=== PATIENT | male | born 1975 | race African-American/Black ===

== ENCOUNTER 2017-07-02 02:36 | Emergency (ER) | payer SELFPAY ==
[~2017-07-02] VITALS: Ht 175.3 cm; Wt 91.0 kg
[2017-07-02 02:39] VITALS: BP 129/76; PULSE 77; RESP 16; TEMP 97.6; O2SAT 94
[2017-07-02 03:37] LABS: AUTOMATED NEUTROPHIL # 1.6 TH/MM3 (1.8-7.7); BASOPHIL # 0.1 TH/MM3 (0-0.2); BASOPHIL % 1.1 % (0.0-2.0); EOSINOPHIL # 0.1 TH/MM3 (0-0.4); EOSINOPHIL % 2.9 % (0.0-4.0); HEMATOCRIT 42.2 % (39.0-51.0); HEMOGLOBIN 14.4 GM/DL (13.0-17.0); LYMPH % 46.5 % (9.0-44.0); LYMPHOCYTE # 2.1 TH/MM3 (1.0-4.8); MEAN CORPUSCULAR HEMOGLOBIN 31.4 PG (27.0-34.0); MEAN CORPUSCULAR HGB CONC 34.1 % (32.0-36.0); MEAN PLATELET VOLUME 8.9 FL (7.0-11.0); MONO % 13.8 % (0.0-8.0); MONOCYTE # 0.6 TH/MM3 (0-0.9); NEUT % 35.7 % (16.0-70.0); PLATELET COUNT 178 TH/MM3 (150-450); RED BLOOD COUNT 4.58 MIL/MM3 (4.50-5.90); RED CELL DISTRIBUTION WIDTH 14.8 % (11.6-17.2); WHITE BLOOD COUNT 4.5 TH/MM3 (4.0-11.0)
[2017-07-02 03:57] LABS: ALBUMIN 3.6 GM/DL (3.4-5.0); ALT (GPT) 30 U/L (12-78); AST (GOT) 24 U/L (15-37); BICARBONATE 29.2 MEQ/L (21.0-32.0); BLOOD UREA NITROGEN 9 MG/DL (7-18); CALCIUM 8.1 MG/DL (8.5-10.1); CHLORIDE 107 MEQ/L (98-107); CREATININE 0.78 MG/DL (0.60-1.30); GLOMERULAR FILTRATION RATE 110 ML/MIN (>89); GLUCOSE,RANDOM 95 MG/DL (74-106); SODIUM (NA) 141 MEQ/L (136-145)
[2017-07-02 03:59] LABS: ALKALINE PHOSPHATASE 163 U/L (45-117); TOTAL BILIRUBIN ADULT 0.2 MG/DL (0.2-1.0); TOTAL PROTEIN 7.4 GM/DL (6.4-8.2)
[2017-07-02 04:02] LABS: ACETAMINOPHEN LESS THAN 2.0 MCG/ML (10.0-30.0)
--- NOTE | 2017-07-02 05:02 | PD ---
HPI Chief Complaint: Psychiatric Symptoms Time Seen by Provider: 03:24 Travel History International Travel<30 days: No Contact w/Intl Traveler<30days: No Traveled to known affect area: No History of Present Illness HPI Patient is a 41-year-old male presented to emergency department voluntarily. Patient states he makes poor choices and is depressed. He reports feeling suicidal. He drinks alcohol on a daily basis. He has no physical complaints this time. Patient is not very forthcoming with information and appears more interested in sleeping. PFSH Past Medical History Depression: Yes Diminished Hearing: No Psychiatric: Yes Immunizations Current: Yes Tetanus Vaccination: < 5 Years Influenza Vaccination: Yes Past Surgical History Other Surgery: Yes (SKIN GRAFT) Social History Alcohol Use: Yes (DAILY) Tobacco Use: Yes (1/2 PPD) Substance Use: Yes Allergies-Medications (Allergen,Severity, Reaction): Coded Allergies: shellfish derived (Verified Allergy, Unknown, 07/02/17) Reported Meds & Prescriptions Reported Meds & Active Scripts Active No Active Prescriptions or Reported Medications Review of Systems Except as stated in HPI: all other systems reviewed are Neg Psychiatric: Positive: Depression, Suicidal Ideations, Substance Abuse Physical Exam Narrative GENERAL: Well-developed, well-nourished, male. SKIN: Warm and dry. HEAD: Atraumatic. Normocephalic. EYES: Pupils equal and round. No scleral icterus. No injection or drainage. ENT: No nasal bleeding or discharge. Mucous membranes pink and moist. NECK: Trachea midline. No JVD. CARDIOVASCULAR: Regular rate and rhythm. RESPIRATORY: No accessory muscle use. Clear to auscultation. Breath sounds equal bilaterally. GASTROINTESTINAL: Abdomen soft, non-tender, nondistended. Hepatic and splenic margins not palpable. MUSCULOSKELETAL: Extremities without clubbing, cyanosis, or edema. No obvious deformities. NEUROLOGICAL: Awake and alert. No obvious cranial nerve deficits. Motor grossly within normal limits. Five out of 5 muscle strength in the arms and legs. Normal speech. PSYCHIATRIC: Depressed mood and flat affect; insight and judgment normal. Data Data Last Documented VS Vital Signs Date Time Temp Pulse Resp B/P (MAP) Pulse Ox O2 Delivery O2 Flow Rate FiO2 07/02/17 02:39 97.6 77 16 129/76 (93) 94 Orders Orders Complete Blood Count With Diff (07/02/17 03:15) Comprehensive Metabolic Panel (07/02/17 03:15) Psych Screen (07/02/17 03:15) Drug Screen, Random Urine (07/02/17 03:15) Alcohol (Ethanol) (07/02/17 03:15) Salicylates (Aspirin) (07/02/17 03:15) Tylenol (Acetaminophen) (07/02/17 03:15) Labs Laboratory Tests Test 07/02/17 03:27 White Blood Count 4.5 TH/MM3 Red Blood Count 4.58 MIL/MM3 Hemoglobin 14.4 GM/DL Hematocrit 42.2 % Mean Corpuscular Volume 92.0 FL Mean Corpuscular Hemoglobin 31.4 PG Mean Corpuscular Hemoglobin Concent 34.1 % Red Cell Distribution Width 14.8 % Platelet Count 178 TH/MM3 Mean Platelet Volume 8.9 FL Neutrophils (%) (Auto) 35.7 % Lymphocytes (%) (Auto) 46.5 % Monocytes (%) (Auto) 13.8 % Eosinophils (%) (Auto) 2.9 % Basophils (%) (Auto) 1.1 % Neutrophils # (Auto) 1.6 TH/MM3 Lymphocytes # (Auto) 2.1 TH/MM3 Monocytes # (Auto) 0.6 TH/MM3 Eosinophils # (Auto) 0.1 TH/MM3 Basophils # (Auto) 0.1 TH/MM3 CBC Comment DIFF FINAL Differential Comment Blood Urea Nitrogen 9 MG/DL Creatinine 0.78 MG/DL Random Glucose 95 MG/DL Total Protein 7.4 GM/DL Albumin 3.6 GM/DL Calcium Level 8.1 MG/DL Alkaline Phosphatase 163 U/L Aspartate Amino Transf (AST/SGOT) 24 U/L Alanine Aminotransferase (ALT/SGPT) 30 U/L Total Bilirubin 0.2 MG/DL Sodium Level 141 MEQ/L Potassium Level 3.8 MEQ/L Chloride Level 107 MEQ/L Carbon Dioxide Level 29.2 MEQ/L Anion Gap 5 MEQ/L Estimat Glomerular Filtration Rate 110 ML/MIN Salicylates Level 2.3 MG/DL Acetaminophen Level LESS THAN 2.0 MCG/ML Ethyl Alcohol Level 207 MG/DL MDM Medical Decision Making Medical Screen Exam Complete: Yes Emergency Medical Condition: Yes Interpretation(s) Laboratory Tests Test 07/02/17 03:27 White Blood Count 4.5 TH/MM3 Red Blood Count 4.58 MIL/MM3 Hemoglobin 14.4 GM/DL Hematocrit 42.2 % Mean Corpuscular Volume 92.0 FL Mean Corpuscular Hemoglobin 31.4 PG Mean Corpuscular Hemoglobin Concent 34.1 % Red Cell Distribution Width 14.8 % Platelet Count 178 TH/MM3 Mean Platelet Volume 8.9 FL Neutrophils (%) (Auto) 35.7 % Lymphocytes (%) (Auto) 46.5 % Monocytes (%) (Auto) 13.8 % Eosinophils (%) (Auto) 2.9 % Basophils (%) (Auto) 1.1 % Neutrophils # (Auto) 1.6 TH/MM3 Lymphocytes # (Auto) 2.1 TH/MM3 Monocytes # (Auto) 0.6 TH/MM3 Eosinophils # (Auto) 0.1 TH/MM3 Basophils # (Auto) 0.1 TH/MM3 CBC Comment DIFF FINAL Differential Comment Blood Urea Nitrogen 9 MG/DL Creatinine 0.78 MG/DL Random Glucose 95 MG/DL Total Protein 7.4 GM/DL Albumin 3.6 GM/DL Calcium Level 8.1 MG/DL Alkaline Phosphatase 163 U/L Aspartate Amino Transf (AST/SGOT) 24 U/L Alanine Aminotransferase (ALT/SGPT) 30 U/L Total Bilirubin 0.2 MG/DL Sodium Level 141 MEQ/L Potassium Level 3.8 MEQ/L Chloride Level 107 MEQ/L Carbon Dioxide Level 29.2 MEQ/L Anion Gap 5 MEQ/L Estimat Glomerular Filtration Rate 110 ML/MIN Salicylates Level 2.3 MG/DL Acetaminophen Level LESS THAN 2.0 MCG/ML Ethyl Alcohol Level 207 MG/DL Vital Signs Date Time Temp Pulse Resp B/P (MAP) Pulse Ox O2 Delivery O2 Flow Rate FiO2 07/02/17 02:39 97.6 77 16 129/76 (93) 94 Differential Diagnosis Mood disorder versus substance abuse versus malingering versus metabolic abnormality versus other Narrative Course Patient presented voluntarily for psychiatric evaluation secondary depression and suicidal ideations. He reports chronic alcohol use. Patient's vital signs are stable. Labs reviewed, abnormality is identified. Alcohol level is 207. Patient is medically cleared for psychiatric evaluation at this time. Diagnosis Primary Impression: Medical clearance for psychiatric admission Scripts No Active Prescriptions or Reported Meds Condition: Stable SimonHelenAngelaevelia MATTA Jul 02, 2017 05:02
[2017-07-02 09:29] VITALS: BP 122/74; PULSE 76; RESP 16; O2SAT 99
[2017-07-02 14:41] VITALS: BP 120/83; PULSE 74; RESP 18; O2SAT 98
--- NOTE | 2017-07-02 15:07 | PD ---
History of Present Illness Chief Complaint: Psychiatric Symptoms Time Seen by Provider: 14:45 Travel History International Travel<30 Days: No Contact w/Intl Traveler<30days: No Known affected area: No Legal Status Legal Status: Voluntary History of Present Illness: History of Present Illness HPI Patient is a 41-year-old male with no psychiatric history who presented to emergency department voluntarily requesting a psychiatric evaluation.he reported feeling suicidal. He drinks alcohol on a daily basis. His BAL on arrival is 207. He was allowed to sober up in ED. Patient seen. EMR reviewed. No previous contact with [facility] . Patient is alert, oriented, engaging and cooperative male. Speech is clear, logical. He states " I was out with my roxann and he left with my phone. We are staying about 2 hours from here and I was getting cold . I had a few drinks and was just out on the street and didn't know what to do. I am not going to hurt myself and never planned to do so". He denies any previous psychiatric history. Denies any previous suicide attempts. He is requesting to be discharged in order to go to the library to message his friend via [employer]. PFSH Past Medical History Medical History: Denies Significant Hx Depression: Yes Diminished Hearing: No Psychiatric: Yes Immunizations Current: Yes Tetanus Vaccination: < 5 Years Influenza Vaccination: Yes Past Surgical History Other Surgery: Yes (SKIN GRAFT) Psychiatric History Psychiatric History Hx Psychiatric Treatment: Deneis any Deneis hx of suicida attempts. History of Inpatient Treatment: No Guns or firearms in home: No Social History Single male who is from [facility]. 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 Hx Alcohol Use: Yes (DAILY) Hx Tobacco Use: Yes (1/2 PPD) Hx Substance Use: Yes Substance Use Type: Alcohol Hx of Substance Use Treatment: No Family Psychiatric History Denies any Allergies-Medications (Allergen,Severity, Reaction): Coded Allergies: shellfish derived (Verified Allergy, Unknown, 07/02/17) Reported Meds & Prescriptions Reported Meds & Active Scripts Active No Active Prescriptions or Reported Medications Review of Systems Except as stated in HPI: all other systems reviewed are Neg Mental Status Examination Appearance: Appropriate Consciousness: Alert Orientation: x4 Motor Activity: Normal gait Speech: Unremarkable Language: Adequate Fund of Knowledge: Adequate Attention and Concentration: Adequate Memory: Unremarkable Mood: Appropriate Affect: Appropriate Thought Process & Associations: Intact Thought Content: Appropriate Hallucination Type: None Delusion Type: None Suicidal Ideation: No Suicidal Plan: No Suicidal Intention: No Homicidal Ideation: No Homicidal Plan: No Homicidal Intention: No Insight: Adequate Judgment: Adequate MDM Medical Decision Making Medical Record Reviewed: Yes Assessment/Plan Patient is a 41-year-old male with no psychiatric history who presented to emergency department voluntarily requesting a psychiatric evaluation. He reported feeling suicidal. He drinks alcohol on a daily basis. His BAL on arrival is 207. He was allowed to sober up in ED. Once clinically sober he denies any suicidal or homicidal ideation, intent or plan, denies any hx of psychiatric illness and demonstrates no objective clinical symptom of depression. He denies that he was feeling suicidal and attributes his statements as " I had too much to drink". He is requesting discharge as he wants to be able to contact his friend who he came to [facility] with. At this time he does not meet criteria for inpatient psychiatric hospitalization. I suspect that his symptoms were in part malingered in order to obtain longterm for the night. Psychiatrically clear for discharge from ed. Orders Orders Complete Blood Count With Diff (07/02/17 03:15) Comprehensive Metabolic Panel (07/02/17 03:15) Psych Screen (07/02/17 03:15) Drug Screen, Random Urine (07/02/17 03:15) Alcohol (Ethanol) (07/02/17 03:15) Salicylates (Aspirin) (07/02/17 03:15) Tylenol (Acetaminophen) (07/02/17 03:15) Diet Regular Basic (07/02/17 Breakfast) Results Vital Signs Date Time Temp Pulse Resp B/P (MAP) Pulse Ox O2 Delivery O2 Flow Rate FiO2 07/02/17 14:41 74 18 120/83 (95) 98 Room Air 07/02/17 11:58 07/02/17 09:29 76 16 122/74 (90) 99 07/02/17 02:39 97.6 77 16 129/76 (93) 94 Laboratory Tests Test 07/02/17 03:27 White Blood Count 4.5 Red Blood Count 4.58 Hemoglobin 14.4 Hematocrit 42.2 Mean Corpuscular Volume 92.0 Mean Corpuscular Hemoglobin 31.4 Mean Corpuscular Hemoglobin Concent 34.1 Red Cell Distribution Width 14.8 Platelet Count 178 Mean Platelet Volume 8.9 Neutrophils (%) (Auto) 35.7 Lymphocytes (%) (Auto) 46.5 Monocytes (%) (Auto) 13.8 Eosinophils (%) (Auto) 2.9 Basophils (%) (Auto) 1.1 Neutrophils # (Auto) 1.6 Lymphocytes # (Auto) 2.1 Monocytes # (Auto) 0.6 Eosinophils # (Auto) 0.1 Basophils # (Auto) 0.1 CBC Comment DIFF FINAL Differential Comment Blood Urea Nitrogen 9 Creatinine 0.78 Random Glucose 95 Total Protein 7.4 Albumin 3.6 Calcium Level 8.1 Alkaline Phosphatase 163 Aspartate Amino Transf (AST/SGOT) 24 Alanine Aminotransferase (ALT/SGPT) 30 Total Bilirubin 0.2 Sodium Level 141 Potassium Level 3.8 Chloride Level 107 Carbon Dioxide Level 29.2 Anion Gap 5 Estimat Glomerular Filtration Rate 110 Salicylates Level 2.3 Acetaminophen Level LESS THAN 2.0 Ethyl Alcohol Level 207 Diagnosis Primary Impression: Alcohol intoxication Psychiatrically Cleared: Yes Departure Forms: Tests/Procedures Patient Instructions: General Instructions, Medical Clearance for Psychiatric Care (ED) Med/ Other Pt Specific Info: No Meds Exist/No RX given Prescriptions No Active Prescriptions or Reported Meds Disposition: 01 DISCHARGE HOME Condition: Stable FrankYeseniadarrel Flores [facility] Jul 02, 2017 15:07
--- NOTE | 2017-07-02 15:07 | PD ---
History of Present Illness Chief Complaint: Psychiatric Symptoms Time Seen by Provider: 14:45 Travel History International Travel<30 Days: No Contact w/Intl Traveler<30days: No Known affected area: No Legal Status Legal Status: Voluntary History of Present Illness: History of Present Illness HPI Patient is a 41-year-old male with no psychiatric history who presented to emergency department voluntarily requesting a psychiatric evaluation.he reported feeling suicidal. He drinks alcohol on a daily basis. His BAL on arrival is 207. He was allowed to sober up in ED. Patient seen. EMR reviewed. No previous contact with [facility] . Patient is alert, oriented, engaging and cooperative male. Speech is clear, logical. He states " I was out with my roxann and he left with my phone. We are staying about 2 hours from here and I was getting cold . I had a few drinks and was just out on the street and didn't know what to do. I am not going to hurt myself and never planned to do so". He denies any previous psychiatric history. Denies any previous suicide attempts. He is requesting to be discharged in order to go to the library to message his friend via [employer]. PFSH Past Medical History Medical History: Denies Significant Hx Depression: Yes Diminished Hearing: No Psychiatric: Yes Immunizations Current: Yes Tetanus Vaccination: < 5 Years Influenza Vaccination: Yes Past Surgical History Other Surgery: Yes (SKIN GRAFT) Psychiatric History Psychiatric History Hx Psychiatric Treatment: Deneis any Deneis hx of suicida attempts. History of Inpatient Treatment: No Guns or firearms in home: No Social History Single male who is from [facility]. 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 Hx Alcohol Use: Yes (DAILY) Hx Tobacco Use: Yes (1/2 PPD) Hx Substance Use: Yes Substance Use Type: Alcohol Hx of Substance Use Treatment: No Family Psychiatric History Denies any Allergies-Medications (Allergen,Severity, Reaction): Coded Allergies: shellfish derived (Verified Allergy, Unknown, 07/02/17) Reported Meds & Prescriptions Reported Meds & Active Scripts Active No Active Prescriptions or Reported Medications Review of Systems Except as stated in HPI: all other systems reviewed are Neg Mental Status Examination Appearance: Appropriate Consciousness: Alert Orientation: x4 Motor Activity: Normal gait Speech: Unremarkable Language: Adequate Fund of Knowledge: Adequate Attention and Concentration: Adequate Memory: Unremarkable Mood: Appropriate Affect: Appropriate Thought Process & Associations: Intact Thought Content: Appropriate Hallucination Type: None Delusion Type: None Suicidal Ideation: No Suicidal Plan: No Suicidal Intention: No Homicidal Ideation: No Homicidal Plan: No Homicidal Intention: No Insight: Adequate Judgment: Adequate MDM Medical Decision Making Medical Record Reviewed: Yes Assessment/Plan Patient is a 41-year-old male with no psychiatric history who presented to emergency department voluntarily requesting a psychiatric evaluation. He reported feeling suicidal. He drinks alcohol on a daily basis. His BAL on arrival is 207. He was allowed to sober up in ED. Once clinically sober he denies any suicidal or homicidal ideation, intent or plan, denies any hx of psychiatric illness and demonstrates no objective clinical symptom of depression. He denies that he was feeling suicidal and attributes his statements as " I had too much to drink". He is requesting discharge as he wants to be able to contact his friend who he came to [facility] with. At this time he does not meet criteria for inpatient psychiatric hospitalization. I suspect that his symptoms were in part malingered in order to obtain [place] [facility]. Psychiatrically clear for discharge from ed. Orders Orders Complete Blood Count With Diff (07/02/17 03:15) Comprehensive Metabolic Panel (07/02/17 03:15) Psych Screen (07/02/17 03:15) Drug Screen, Random Urine (07/02/17 03:15) Alcohol (Ethanol) (07/02/17 03:15) Salicylates (Aspirin) (07/02/17 03:15) Tylenol (Acetaminophen) (07/02/17 03:15) Diet Regular Basic (07/02/17 Breakfast) Results Vital Signs Date Time Temp Pulse Resp B/P (MAP) Pulse Ox O2 Delivery O2 Flow Rate FiO2 07/02/17 14:41 74 18 120/83 (95) 98 Room Air 07/02/17 11:58 07/02/17 09:29 76 16 122/74 (90) 99 07/02/17 02:39 97.6 77 16 129/76 (93) 94 Laboratory Tests Test 07/02/17 03:27 White Blood Count 4.5 Red Blood Count 4.58 Hemoglobin 14.4 Hematocrit 42.2 Mean Corpuscular Volume 92.0 Mean Corpuscular Hemoglobin 31.4 Mean Corpuscular Hemoglobin Concent 34.1 Red Cell Distribution Width 14.8 Platelet Count 178 Mean Platelet Volume 8.9 Neutrophils (%) (Auto) 35.7 Lymphocytes (%) (Auto) 46.5 Monocytes (%) (Auto) 13.8 Eosinophils (%) (Auto) 2.9 Basophils (%) (Auto) 1.1 Neutrophils # (Auto) 1.6 Lymphocytes # (Auto) 2.1 Monocytes # (Auto) 0.6 Eosinophils # (Auto) 0.1 Basophils # (Auto) 0.1 CBC Comment DIFF FINAL Differential Comment Blood Urea Nitrogen 9 Creatinine 0.78 Random Glucose 95 Total Protein 7.4 Albumin 3.6 Calcium Level 8.1 Alkaline Phosphatase 163 Aspartate Amino Transf (AST/SGOT) 24 Alanine Aminotransferase (ALT/SGPT) 30 Total Bilirubin 0.2 Sodium Level 141 Potassium Level 3.8 Chloride Level 107 Carbon Dioxide Level 29.2 Anion Gap 5 Estimat Glomerular Filtration Rate 110 Salicylates Level 2.3 Acetaminophen Level LESS THAN 2.0 Ethyl Alcohol Level 207 Diagnosis Primary Impression: Alcohol intoxication Psychiatrically Cleared: Yes Departure Forms: Tests/Procedures Patient Instructions: General Instructions, Medical Clearance for Psychiatric Care (ED) Med/ Other Pt Specific Info: No Meds Exist/No RX given Prescriptions No Active Prescriptions or Reported Meds Disposition: 01 DISCHARGE HOME Condition: Stable FrankYeseniadarrel Flores [facility] Jul 02, 2017 15:07
--- NOTE | 2017-07-02 15:07 | PD ---
History of Present Illness Chief Complaint: Psychiatric Symptoms Time Seen by Provider: 14:45 Travel History International Travel<30 Days: No Contact w/Intl Traveler<30days: No Known affected area: No Legal Status Legal Status: Voluntary History of Present Illness: History of Present Illness HPI Patient is a 41-year-old male with no psychiatric history who presented to emergency department voluntarily requesting a psychiatric evaluation.he reported feeling suicidal. He drinks alcohol on a daily basis. His BAL on arrival is 207. He was allowed to sober up in ED. Patient seen. EMR reviewed. No previous contact with [facility] . Patient is alert, oriented, engaging and cooperative male. Speech is clear, logical. He states " I was out with my roxann and he left with my phone. We are staying about 2 hours from here and I was getting cold . I had a few drinks and was just out on the street and didn't know what to do. I am not going to hurt myself and never planned to do so". He denies any previous psychiatric history. Denies any previous suicide attempts. He is requesting to be discharged in order to go to the library to message his friend via [employer]. PFSH Past Medical History Medical History: Denies Significant Hx Depression: Yes Diminished Hearing: No Psychiatric: Yes Immunizations Current: Yes Tetanus Vaccination: < 5 Years Influenza Vaccination: Yes Past Surgical History Other Surgery: Yes (SKIN GRAFT) Psychiatric History Psychiatric History Hx Psychiatric Treatment: Deneis any Deneis hx of suicida attempts. History of Inpatient Treatment: No Guns or firearms in home: No Social History Single male who is from [facility]. 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 Hx Alcohol Use: Yes (DAILY) Hx Tobacco Use: Yes (1/2 PPD) Hx Substance Use: Yes Substance Use Type: Alcohol Hx of Substance Use Treatment: No Family Psychiatric History Denies any Allergies-Medications (Allergen,Severity, Reaction): Coded Allergies: shellfish derived (Verified Allergy, Unknown, 07/02/17) Reported Meds & Prescriptions Reported Meds & Active Scripts Active No Active Prescriptions or Reported Medications Review of Systems Except as stated in HPI: all other systems reviewed are Neg Mental Status Examination Appearance: Appropriate Consciousness: Alert Orientation: x4 Motor Activity: Normal gait Speech: Unremarkable Language: Adequate Fund of Knowledge: Adequate Attention and Concentration: Adequate Memory: Unremarkable Mood: Appropriate Affect: Appropriate Thought Process & Associations: Intact Thought Content: Appropriate Hallucination Type: None Delusion Type: None Suicidal Ideation: No Suicidal Plan: No Suicidal Intention: No Homicidal Ideation: No Homicidal Plan: No Homicidal Intention: No Insight: Adequate Judgment: Adequate MDM Medical Decision Making Medical Record Reviewed: Yes Assessment/Plan Patient is a 41-year-old male with no psychiatric history who presented to emergency department voluntarily requesting a psychiatric evaluation. He reported feeling suicidal. He drinks alcohol on a daily basis. His BAL on arrival is 207. He was allowed to sober up in ED. Once clinically sober he denies any suicidal or homicidal ideation, intent or plan, denies any hx of psychiatric illness and demonstrates no objective clinical symptom of depression. He denies that he was feeling suicidal and attributes his statements as " I had too much to drink". He is requesting discharge as he wants to be able to contact his friend who he came to [facility] with. At this time he does not meet criteria for inpatient psychiatric hospitalization. I suspect that his symptoms were in part malingered in order to obtain senior care for the night. Psychiatrically clear for discharge from ed. Orders Orders Complete Blood Count With Diff (07/02/17 03:15) Comprehensive Metabolic Panel (07/02/17 03:15) Psych Screen (07/02/17 03:15) Drug Screen, Random Urine (07/02/17 03:15) Alcohol (Ethanol) (07/02/17 03:15) Salicylates (Aspirin) (07/02/17 03:15) Tylenol (Acetaminophen) (07/02/17 03:15) Diet Regular Basic (07/02/17 Breakfast) Results Vital Signs Date Time Temp Pulse Resp B/P (MAP) Pulse Ox O2 Delivery O2 Flow Rate FiO2 07/02/17 14:41 74 18 120/83 (95) 98 Room Air 07/02/17 11:58 07/02/17 09:29 76 16 122/74 (90) 99 07/02/17 02:39 97.6 77 16 129/76 (93) 94 Laboratory Tests Test 07/02/17 03:27 White Blood Count 4.5 Red Blood Count 4.58 Hemoglobin 14.4 Hematocrit 42.2 Mean Corpuscular Volume 92.0 Mean Corpuscular Hemoglobin 31.4 Mean Corpuscular Hemoglobin Concent 34.1 Red Cell Distribution Width 14.8 Platelet Count 178 Mean Platelet Volume 8.9 Neutrophils (%) (Auto) 35.7 Lymphocytes (%) (Auto) 46.5 Monocytes (%) (Auto) 13.8 Eosinophils (%) (Auto) 2.9 Basophils (%) (Auto) 1.1 Neutrophils # (Auto) 1.6 Lymphocytes # (Auto) 2.1 Monocytes # (Auto) 0.6 Eosinophils # (Auto) 0.1 Basophils # (Auto) 0.1 CBC Comment DIFF FINAL Differential Comment Blood Urea Nitrogen 9 Creatinine 0.78 Random Glucose 95 Total Protein 7.4 Albumin 3.6 Calcium Level 8.1 Alkaline Phosphatase 163 Aspartate Amino Transf (AST/SGOT) 24 Alanine Aminotransferase (ALT/SGPT) 30 Total Bilirubin 0.2 Sodium Level 141 Potassium Level 3.8 Chloride Level 107 Carbon Dioxide Level 29.2 Anion Gap 5 Estimat Glomerular Filtration Rate 110 Salicylates Level 2.3 Acetaminophen Level LESS THAN 2.0 Ethyl Alcohol Level 207 Diagnosis Primary Impression: Alcohol intoxication Psychiatrically Cleared: Yes Departure Forms: Tests/Procedures Patient Instructions: General Instructions, Medical Clearance for Psychiatric Care (ED) Med/ Other Pt Specific Info: No Meds Exist/No RX given Prescriptions No Active Prescriptions or Reported Meds Disposition: 01 DISCHARGE HOME Condition: Stable FrankYeseniadarrel Flores [facility] Jul 02, 2017 15:07
--- NOTE | 2017-07-02 15:16 | PD ---
Data Data Last Documented VS Vital Signs Date Time Temp Pulse Resp B/P (MAP) Pulse Ox O2 Delivery O2 Flow Rate FiO2 07/02/17 14:41 74 18 120/83 (95) 98 Room Air 07/02/17 02:39 97.6 Orders Orders Complete Blood Count With Diff (07/02/17 03:15) Comprehensive Metabolic Panel (07/02/17 03:15) Psych Screen (07/02/17 03:15) Drug Screen, Random Urine (07/02/17 03:15) Alcohol (Ethanol) (07/02/17 03:15) Salicylates (Aspirin) (07/02/17 03:15) Tylenol (Acetaminophen) (07/02/17 03:15) Diet Regular Basic (07/02/17 Breakfast) Labs Laboratory Tests Test 07/02/17 03:27 White Blood Count 4.5 TH/MM3 Red Blood Count 4.58 MIL/MM3 Hemoglobin 14.4 GM/DL Hematocrit 42.2 % Mean Corpuscular Volume 92.0 FL Mean Corpuscular Hemoglobin 31.4 PG Mean Corpuscular Hemoglobin Concent 34.1 % Red Cell Distribution Width 14.8 % Platelet Count 178 TH/MM3 Mean Platelet Volume 8.9 FL Neutrophils (%) (Auto) 35.7 % Lymphocytes (%) (Auto) 46.5 % Monocytes (%) (Auto) 13.8 % Eosinophils (%) (Auto) 2.9 % Basophils (%) (Auto) 1.1 % Neutrophils # (Auto) 1.6 TH/MM3 Lymphocytes # (Auto) 2.1 TH/MM3 Monocytes # (Auto) 0.6 TH/MM3 Eosinophils # (Auto) 0.1 TH/MM3 Basophils # (Auto) 0.1 TH/MM3 CBC Comment DIFF FINAL Differential Comment Blood Urea Nitrogen 9 MG/DL Creatinine 0.78 MG/DL Random Glucose 95 MG/DL Total Protein 7.4 GM/DL Albumin 3.6 GM/DL Calcium Level 8.1 MG/DL Alkaline Phosphatase 163 U/L Aspartate Amino Transf (AST/SGOT) 24 U/L Alanine Aminotransferase (ALT/SGPT) 30 U/L Total Bilirubin 0.2 MG/DL Sodium Level 141 MEQ/L Potassium Level 3.8 MEQ/L Chloride Level 107 MEQ/L Carbon Dioxide Level 29.2 MEQ/L Anion Gap 5 MEQ/L Estimat Glomerular Filtration Rate 110 ML/MIN Salicylates Level 2.3 MG/DL Acetaminophen Level LESS THAN 2.0 MCG/ML Ethyl Alcohol Level 207 MG/DL [facility] Medical Record Reviewed: Yes Supervised Visit with SARI: Yes Narrative Course Patient is a 30-year-old male who presented to [facility] emergency room voluntarily after he made a comment that he wanted to commit suicide yesterday. Patient reports that he is here for her bike week, patient reports that he was drinking heavily last night and his friend left him. Patient reports that he was depressed and drunk and made a comment that he was suicidal, patient reports that he did not mean it. Patient this time denies suicidal or homicidal ideation. Patient was seen by psychiatric screenerYesenia, patient was deemed safe to be discharged to home safely. Patient at this time contracts for safety, absolutely denies si/hi. Patient safe to be discharged to home. He understands that he may return to the emergency room at any time for evaluation. Diagnosis Primary Impression: Medical clearance for psychiatric admission Additional Impressions: Depression Alcohol intoxication Patient Instructions: General Instructions, Medical Clearance for Psychiatric Care (ED) Departure Forms: Tests/Procedures Scripts No Active Prescriptions or Reported Meds Disposition: 01 DISCHARGE HOME Condition: Stable Miri Valle DO Jul 02, 2017 15:16
== END 2017-07-02 15:58 | disposition home or self-care (01) ==
LOC: NEPD 02:36
DX: F32.9 Major depressive disorder, single episode, unspecified (principal); F10.129 Alcohol abuse with intoxication, unspecified; F17.200 Nicotine dependence, unspecified, uncomplicated; Y90.7 Blood alcohol level of 200-239 mg/100 ml
CPT/HCPCS: 80053; 80307; 85025; 99284